=== PATIENT | female | born 1995 | race Hispanic/Latino ===

== ENCOUNTER 2019-12-08 21:34 | Emergency (ER) | payer MEDICAID ==
--- NOTE | 2019-12-08 22:48 | XRay Report ---
CHEST PA AND LATERAL VIEWS INDICATION: MAIN. COMPARISON: 09/20/2018 FINDINGS: Support devices: None Heart: Normal and unchanged Lungs/Pleura: No acute pulmonary or pleural findings. IMPRESSION: 1. No active disease. Right basilar disease on the previous exam has completely resolved. Signer Name: Tay Forman MD Signed: 12/08/2019 10:44 PM Workstation Name: [id number]
== END 2019-12-09 02:34 | disposition left against medical advice (07) ==
LOC: ED 21:34
DX: R00.0 Tachycardia, unspecified (principal); Z53.21 Procedure and treatment not carried out due to patient leaving prior to being seen by health care provider
CPT/HCPCS: 71046; 93005

== ENCOUNTER 2021-09-24 09:25 | Outpatient (CLI) | payer MEDICAID ==
[2021-09-24] MEDS ORDERED: LACTATED RINGERS 500 ML IV ONE (10:15)
[2021-09-24 11:29] LABS: Calcium Oxalate Crystals,Urine 2+; Mucus,Urine 3+ /HPF
[2021-09-24 11:37] LABS: Bilirubin,Urine Negative (Negative); Blood,Urine Negative (Negative); Color,Urine Amber (Yellow); Urobilinogen,Urine < 2.0 mg/dL (<2.0)
[2021-09-24 12:16] VITALS: BP 145/71
== END 2021-09-24 12:35 | disposition home or self-care (01) ==
LOC: TRG 09:25 → APU 09:26 → TRG 12:35
PROVIDERS: ATTEND Obstetrics & Gynecology
DX: O62.9 Abnormality of forces of labor, unspecified (principal); O10.913 Unspecified pre-existing hypertension complicating pregnancy, third trimester; Z3A.36 36 weeks gestation of pregnancy
CPT/HCPCS: 59025; 81001; J7120; 96360